=== PATIENT | female | born 1950 | race Caucasian/White ===

== ENCOUNTER 2018-01-03 19:36 | Observation (INO) | payer MEDICARE, OTHER ==
[~2018-01-03] VITALS: Ht 170.2 cm; Wt 97.2 kg
[~2018-01-03 19:36] MED LIST: OMEPRAZOLE20 MG PO; SYNTHROID150 MCG PO
--- NOTE | 2018-01-03 22:08 | NUR ---
PT STATES SHE HAS VERTIGO USUALLY, WILL DO ADMIT PHYSICAL ASSESSMENT WHEN PT READY
--- NOTE | 2018-01-03 23:00 | NUR ---
PT UP TO BRP, VOIDED CLEAR YELLOW URINE. BACK TO BED, TOLERATED FAIR. STILL C/O DRY HEAVING. DR SAMANO NOTIFIED VIA PHONE, N.O FOR PHENERGAN 12.5 MG IV Q4-6H FOR N/V, AND DILAUDID 0.3 TO 1.5 MF IV Q2 RECEIVED. NO C/O ABD PAIN AT THIS TIME. FAMILY AT BEDSIDE
--- NOTE | 2018-01-04 00:41 | NUR ---
medicated with phenergan 12.5mg IV, c/o dry heaving
--- NOTE | 2018-01-04 02:06 | NUR ---
RESTING, EYES CLOSED, NO RESP DISTRESS, NO FURTHER C/O N/V OR DRY HEAVING, PHENERGAN GIVEN EARLIER EFFECTIVE, TURNS SELF IN BED, NO S/SX OR CO ABD PAIN
--- NOTE | 2018-01-04 02:17 | NUR ---
UP TO BRP, VOIDED, BACK TO BED, DROWSY, NO C/O N/V OR ABD PAIN, TOLERATED WELL
--- NOTE | 2018-01-04 04:27 | NUR ---
PT UP TO BRP WITH ONE ASSIST, VOIDED, BACK TO BED, TOLERATED WELL. NO FURTHER C/O ABD PAIN OR N/V. AWAKE. IVF INFUSING W/O PROBLEMS. TURNS SELF IN BED
--- NOTE | 2018-01-04 05:45 | NUR ---
PT ADMITTED TO ROOM 123 FROM ED, C/O ABD PAIN. HAS BEEN MEDICATED WITH PHENERGAN 12.5MG IV PER DRY HEAVING, HAD EMESIS OF 100CC BILE COLORED. IVF INFUSING W/O PROBLEMS, RECEIVED FLAGYL AND LEVAQUIN ABX, TOLERATED WELL, IVF INFUSING W/O PROBLEMS. NO C/O ABD PAIN. UP TO BRP WITH 1 SBA, VOIDING QS. CURRENTLY IN BED, EYES CLOSED, NO RESP DISTRESS, NO FURTHER C/O N/V. PT NPO SINCE 0300 FOR AM PROCEDURE. WRITTEN AND VERBAL INFORMATION R/T PREOP/POST OP CARE/EXPECTATIONS, STATED UNDERSTANDING
--- NOTE | 2018-01-04 08:30 | NUR ---
PT AWAKE IN BED, ALERT AND ORIENTED. PT DENIES PAIN OR NAUSEA STATES "I'M ACTUALLY FEELING PRETTY GOOD." ASSESSMENT COMPLETED AND BENIGN. IV INFUSING WNL IN RIGHT AC, DRESSING CDI. PT INDEPENDENT TO RESTROOM. CALL LIGHT WITHIN REACH.
--- NOTE | 2018-01-04 10:24 | CONS ---
[facility] [address], [place] [address] Signed DATE OF CONSULTATION: 01/04/2018 CHIEF COMPLAINT: Right upper quadrant abdominal pain. HISTORY OF PRESENT ILLNESS: Emiliano is a 67-year-old female, who [place] out [place] the country in [place], [place]. She is with her , but he has had a significant stroke. He has significant cognitive issues following the stroke. More or less, she takes care of him. In the last month or so, she has had multiple episodes of right upper quadrant abdominal pain with significant nausea. She had been to her primary care provider. An ultrasound was done a few days ago, and she has at least two stones with half the gallbladder full of sludge along with adenomyosis of gallbladder wall. Common bile duct was unremarkable. She was scheduled to see me in the office in 2 days. However, she had another attack yesterday, so she came to the emergency room for evaluation. In the emergency room, it looks like she has quite a bit of white blood cells and bacteria in the urine as well. I was called to admit her as a general surgeon on-call for the gallbladder and urinary tract infection. She has been given Levaquin and Flagyl. She has done well overnight with her IV fluids and pain control. PAST MEDICAL HISTORY: Gastroesophageal reflux disease and thyroid cancer. PAST SURGICAL HISTORY: Includes a total thyroidectomy. SOCIAL HISTORY: She does not smoke or drink. She is to Vishnu at [phone]. They live in [place], [place]. They have two children. She does drive. 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 Dr. Zachariah Dumont is her primary care provider. FAMILY HISTORY: Mom had bladder cancer. Dad committed suicide. REVIEW OF SYSTEMS: Emiliano had 10 systems reviewed and there are no new issues. ALLERGIES: None. MEDICATIONS: Omeprazole and levothyroxine 150 mcg p.o. daily. Electronically Signed By: BENITA SAMANO MD 01/04/18 1024 PATIENT NAME: EMILIANO BROWN CONSULTATION DATE OF : 50 REPORT #: [id number] PHYSICIAN: BENITA SAMANO MD PCP: ZACHARIAH DUMONT DO REPORT IS CONFIDENTIAL AND NOT TO BE RELEASED WITHOUT AUTHORIZATION [facility] [address], [place] [address] Signed PHYSICAL EXAMINATION: VITAL SIGNS: Her blood pressure is 118/64, heart rate 60, respiratory rate 14, and temperature 97.9. She is 98% on room air. She is 5 feet 7 inches at 97 kg. GENERAL: Emiliano is a 67-year-old female, lying supine in her hospital bed. She does not appear systemically ill or toxic. LUNGS: Clear to auscultation bilaterally. HEART: Regular rate and rhythm. ABDOMEN: Obese, but soft and nontender. LABORATORY DATA: Her white blood cell count is 9.6, her hemoglobin is 15. Her BUN is 17, creatinine 0.7, total bilirubin was 1, AST 126, ALT 196, alkaline phosphatase 90, albumin is 4.6, and lipase 57. Urinalysis shows white blood cells and +1 bacteria. RADIOGRAPHIC STUDIES: Ultrasound shows two small stones in the gallbladder along with the gallbladder about half full of sludge. She has adenomyosis of the gallbladder wall. The common bile duct is unremarkable. ASSESSMENT AND PLAN: Emiliano is a 67-year-old female, who presents with what looks like cholecystitis, cholelithiasis as well as urinary tract infection. She has been admitted, hydrated, and given IV fluids along with IV antibiotics. She has had good pain control. I met with Emiliano in the hospital here and we discussed the above findings. She understands the location and function of the gallbladder. She understands laparoscopic versus open cholecystectomy. We did review the expected intraop and postop course. There is risk of surgery including, but not limited to bleeding, infection, scarring, change in contour of the skin, damage to bowel, damage to main bile duct, incisional hernias, and other unforeseen comorbidities. She had expressed understanding and she wishes to proceed. We are going to be adding her on to our OR scheduled for later this morning. Benita Samano MD ALB/MODL /[id number] cc: Zachariah Dumont DO Electronically Signed By: BENITA SAMANO MD 01/04/18 1024 PATIENT NAME: EMILIANO BROWN CONSULTATION DATE OF : 50 REPORT #: [id number] PHYSICIAN: BENITA SAMANO MD PCP: ZACHARIAH DUMONT DO REPORT IS CONFIDENTIAL AND NOT TO BE RELEASED WITHOUT AUTHORIZATION [address] [address] Signed Benita Samano MD Copies: ZACHARIAH DUMONT ANDREW L MD ~ Electronically Signed By: BENITA SAMANO MD 01/04/18 1024 PATIENT NAME: EMILIANO BROWN CONSULTATION DATE OF : 50 REPORT #: [id number] PHYSICIAN: BENITA SAMANO MD PCP: ZACHARIAH DUMONT DO REPORT IS CONFIDENTIAL AND NOT TO BE RELEASED WITHOUT AUTHORIZATION
--- NOTE | 2018-01-04 10:45 | NUR ---
PT TRANSFERRED TO STRETCHER INDEPENDENTLY, TRANSPORTED TO OR. FAMILY AT BEDSIDE.
--- NOTE | 2018-01-04 11:06 | NUR ---
CHANGED PATIENT'S LINENS. WHILE SHE DID HER WIPE DOWN FOR SURGERY. PUT THE SCDS ON AND NEW SOCKS AND GOWN.
--- NOTE | 2018-01-04 11:09 | NUR ---
NOW IN SURGERY.
--- NOTE | 2018-01-04 12:23 | NUR ---
01/04/18 1223 SHEEHAN,AMAN Appiah 1221: ORAL AIRWAY OUT. O2 MASK ON AT 8 L/MIN. PATIENT DENIES PAIN. DROWSY. PATIENT BACK TO SLEEP.
--- NOTE | 2018-01-04 13:00 | NUR ---
PT RETURNED FROM SURGERY. VERY DROWSY, REQUIRED FULL ASSIST FROM STRETCHER TO BED. PT WILL OPEN EYES BREIFLY TO ANSWER QUESTIONS BUT FALLS ASLEEP QUICKLY. LAP SITES X3 CDI. PT DENIES PAIN OR NAUSEA AT THIS TIME. SATTING 93% ON RA. IV INFUSING WNL. SCD'S ON. FAMILY AT BEDSIDE, CALL LIGHT WITHIN REACH.
[2018-01-04] MEDS ORDERED: NORCO 5-325 TA1 EACH PO (13:18)
--- NOTE | 2018-01-04 13:20 | OR ---
[facility] [address] [place], [place] [address] Signed DATE OF OPERATION: 01/04/2018 SURGEON: Benita Samano MD PREOPERATIVE DIAGNOSIS: Cholecystitis with cholelithiasis (sludge). POSTOPERATIVE DIAGNOSIS: Cholecystitis with cholelithiasis (sludge). PROCEDURE: Laparoscopic cholecystectomy with intraoperative cholangiogram. ESTIMATED BLOOD LOSS: None. FINDINGS: Emiliano had multiple small 5 to 7 mm stones in the gallbladder along with some sludge. Her common bile duct was unremarkable on the intraoperative cholangiogram. INDICATIONS: Emiliano is a 67-year-old female who has had trouble with right upper quadrant abdominal pain and nausea several times the last few weeks. She ended up going to her primary care provider and had an ultrasound which showed the stones and sludge with an unremarkable common bile duct. There were plans to come see me in the office I guess later in the week. She came to the emergency room this weekend with another episode. White count was normal. Liver function tests were slightly elevated and her urine showed some white blood cells and a little bacteria. Consequently, we admitted her and gave her some antibiotics. I met with Emiliano and explained to her the above findings. We also reviewed the location of function of the gallbladder. We discussed laparoscopic versus open cholecystectomy. She understands expected intraop and postop course. There is risk of surgery including, but not limited to bleeding, infection, scarring, change in contour of the skin, damage to bowel, damage to main bile duct, incisional hernias and other unforeseen comorbidities. She had expressed understanding and wished to proceed. PROCEDURE NOTE: Emiliano was taken into our operating room and placed in the supine position under general endotracheal tube anesthesia. She was given preoperative antibiotics along with subcutaneous heparin. In addition, SCDs were utilized. She was then prepped and draped Electronically Signed By: BENITA SAMANO MD 01/04/18 1320 PATIENT NAME: EMILIANO BROWN OPERATIVE REPORT DATE OF : 50 REPORT #: [id number] PHYSICIAN: BENITA SAMANO MD PCP: MARIA D DUMONT DO REPORT IS CONFIDENTIAL AND NOT TO BE RELEASED WITHOUT AUTHORIZATION [facility] [address], [place] [address] Signed in the usual sterile fashion. All trocars were placed in usual positions under direct visualization of camera without difficulty. We had quite a bit of air in the stomach. Unfortunately, we could not pass an OG tube to evacuate that air. It took a few minutes to dissect out the triangle of Calot and then the intraoperative cholangiogram was performed. The cystic duct stump was secured with a PDS Endoloop along with a couple of clips to cherry its location. The gallbladder was then removed from the gallbladder fossa with the help of the cautery and placed into an EndoCatch bag. The right upper quadrant was irrigated and suctioned out until clear. We used our laparoscopic suturing device to pass 0 Vicryl suture on either side of the fascia or the subxiphoid trocar site. This was tied down to close this fascia primarily. After this, the trocars were all removed along with the gallbladder. The gallbladder had been opened on the back table and pictures were taken for photodocumentation. The fascia of the supraumbilical trocar site was closed with interrupted simple and [id number] 0 Vicryl sutures. Local anesthetic was injected into all trocar sites. Each trocar site was irrigated and suctioned out until clear. The skin and dermis of each trocar site were closed with interrupted 3-0 subcuticular Monocryl sutures. Dry gauze and tape were then applied. Emiliano was awakened from her anesthesia, extubated in the OR and taken to the recovery room in stable condition. Benita Samano MD ALB/MODL /[id number] cc: DO Benita Seklton MD Copies: MARIA D DUMONT ANDREW L MD ~ Electronically Signed By: BENITA SAMANO MD 01/04/18 1320 PATIENT NAME: EMILIANO BROWN OPERATIVE REPORT DATE OF : 50 REPORT #: [id number] PHYSICIAN: BENITA SAMANO MD PCP: MARIA D DUMONT DO REPORT IS CONFIDENTIAL AND NOT TO BE RELEASED WITHOUT AUTHORIZATION
[2018-01-04] MEDS ORDERED: PROMETHAZINE HC25 M1 PO (13:21)
[2018-01-04] MEDS ORDERED: LEVAQUIN500 MG PO (13:21)
[2018-01-04] MEDS ORDERED: FLAGYL500 MG PO (13:22)
--- NOTE | 2018-01-04 15:05 | NUR ---
PATIENT TOOK A WALK, AND ASKED FOR A JELLO AND THEN ORDERED A MEAL AND ALSO WANTED TO TAKE CARE OF HER PAIN LEVEL. NURSE WAS NOTIFIED. I BROUGHT PATIENT ANOTHER JELLO WHILE WAITING
--- NOTE | 2018-01-04 21:29 | EKG ---
[facility] [address] [facility] [place] [address] Signed Sinus bradycardia Otherwise normal ECG No previous ECGs available Confirmed by SANAM OCONNOR MD ([id number]) on 01/04/2018 9:29:20 PM Electronically Signed By: SANAM OCONNOR MD 01/04/18 2129 PATIENT NAME: EMILIANO BROWN CARLOS Electrocardiogram DATE OF : 50 PHYSICIAN: SANAM OCONNOR MD REPORT #: [id number] REPORT IS CONFIDENTIAL AND NOT TO BE RELEASED WITHOUT AUTHORIZATION
== END 2018-01-04 16:22 | disposition home or self-care (01) ==
LOC: ED 19:36 → MS 19:37
PROVIDERS: ADMIT Colon & Rectal Surgery
PROC: 0FT44ZZ Resection of Gallbladder, Percutaneous Endoscopic Approach (ICD-10-PCS; 2018-01-04)
PROC: BF101ZZ Fluoroscopy of Bile Ducts using Low Osmolar Contrast (ICD-10-PCS; principal; 2018-01-04 12:00)
DX: K80.10 Calculus of gallbladder with chronic cholecystitis without obstruction (principal); K21.9 Gastro-esophageal reflux disease without esophagitis; N39.0 Urinary tract infection, site not specified; E66.9 Obesity, unspecified; E89.0 Postprocedural hypothyroidism; Z79.899 Other long term (current) drug therapy; Z85.850 Personal history of malignant neoplasm of thyroid; Z68.33 Body mass index [BMI] 33.0-33.9, adult
CPT/HCPCS: 00790; 74300; 80053; 81001; 83690; 85025; 88304; 93005; 93010; 96361; 96365; 96366; 96375; 96376; 99285; G0378; J0330; J0735; J1100; J1170; J1885; J1956; J2250; J2405; J2550; J2704; J3475; J7030; J7120; Q9967

== ENCOUNTER → 2018-01-16 | Emergency (ER) | payer MEDICARE, OTHER ==
[~2018-01-16] VITALS: Ht 170.2 cm; Wt 97.2 kg
[~2018-01-16] MED LIST changes: +FLAGYL500 MG PO; +LEVAQUIN500 MG PO; +NORCO 5-325 TA1 EACH PO; +PROMETHAZINE HC25 M1 PO
== END ==
LOC: ED 21:17
DX: K85.90 Acute pancreatitis without necrosis or infection, unspecified (principal); Z79.899 Other long term (current) drug therapy; Z90.49 Acquired absence of other specified parts of digestive tract
CPT/HCPCS: 74177; 80053; 81001; 82150; 83690; 85025; 96361; 96374; 96375; 99285; J1170; J2405; J7030; Q9967

== ENCOUNTER 2019-08-27 07:32 | Day surgery (SDC) | payer MEDICARE, OTHER ==
[~2019-08-27] VITALS: Ht 167.6 cm; Wt 96.6 kg
--- NOTE | 2019-08-27 09:00 | NUR ---
08/27/19 0859 Caro Ceballos 0854- PT TO PACU IN LL POSITION. EYES CLOSED. OPENS EYES TO VERBAL AND LIGHT TACTILE STIMULATION . DENIES PAIN AND NAUSEA. BREATHING EASY AND UNLABORED. SP02 >95% ON 2 L O2 VIA NC. 0900- PT CONTINUES TO SLEEP IN LL POSITION EYES CLOSED. BREATHING EASY AND UNLABORED. SP02 >95% ON RA. PASSING GAS.
--- NOTE | 2019-08-27 09:49 | OR ---
[facility] [address] [place], [place] [address] Signed DATE OF OPERATION: 08/27/2019 SURGEON: Naga Gomez MD PREOPERATIVE DIAGNOSIS: Colon screening (surveillance). POSTOPERATIVE DIAGNOSIS: Melanosis coli. PROCEDURE: Total colonoscopy to cecum with biopsy of rectum and cecum. ANESTHESIA: Intravenous sedation, fentanyl 150 mcg, Versed 5 mg. INDICATION: This 68-year-old white woman is a patient of Zachariah Dumont. She has seen Dr. Plasencia and others in the past. She is here for surveillance colonoscopy. Prior colonoscopy has shown no evidence of polyps so far as it is known. She additionally has gastroesophageal reflux, for which, she takes PPI medication. She understands the risks of bleeding, infection, and perforation related to colonoscopy and wished to proceed. FINDINGS: The prep was adequate. Complete colonoscopy was undertaken to the cecum. Melanosis coli was noted. Biopsies were obtained. There were no polyps, diverticular formation, colitis, or cancer. PROCEDURE NOTE: The patient was brought to the endoscopy suite and placed in lateral decubitus position, given intravenous sedation to the point of slurred speech and nystagmus. Digital rectal examination was normal. An Olympus video colonoscope was passed in the rectum and manipulated throughout the colon ultimately intubating the cecum itself. Irrigation was required, though there was no solid stool. Melanosis coli was obvious. Biopsies were taken of the cecum. The scope was withdrawn and examination throughout showed no sign of polyps, diverticular formation, colitis or cancer, only melanosis coli. Biopsy of rectum was similarly obtained. The scope was then removed. The patient was taken to recovery room in good condition. Electronically Signed By: NAGA GOMEZ MD 08/27/19 0949 PATIENT NAME: EMILIANO BROWN OPERATIVE REPORT DATE OF : 50 REPORT #: [id number] PHYSICIAN: NAGA GOMEZ MD PCP: ZACHARIAH DUMONT DO REPORT IS CONFIDENTIAL AND NOT TO BE RELEASED WITHOUT AUTHORIZATION [facility] [address] [place], [place] [address] Signed CONCLUDING DIAGNOSIS: Melanosis coli. No sign of polyps. PLAN: Recommend repeat colonoscopy in 10 years if clinically appropriate. She will return to the ongoing care of Zachariah Dumont. MD RENATA Hinds/MODL /[id number] cc: Zachariah Dumont DO Copies: ZACHARIAH DUMONT DO ~ Electronically Signed By: NAGA GOMEZ MD 08/27/19 0949 PATIENT NAME: EMILIANO BROWN OPERATIVE REPORT DATE OF : 50 REPORT #: [id number] PHYSICIAN: NAGA GOMEZ MD PCP: ZACHARIAH DUMONT DO REPORT IS CONFIDENTIAL AND NOT TO BE RELEASED WITHOUT AUTHORIZATION
--- NOTE | 2019-08-31 15:16 | PATH ---
[facility] [address] [place], [place] [address] Signed SPECIMEN(S): A CECUM SPECIMEN(S): B RECTUM SPECIMEN SOURCE: A. CECUM B. RECTUM CLINICAL HISTORY: Screening, melanosis coli. MICROSCOPIC DESCRIPTION: A special stain for iron (with appropriately staining controls) was performed on the cecal biopsy (A) and is negative for hemosiderin-laden macrophages. Histologic sections of all submitted blocks are examined by light microscopy. These findings, together with the gross examination, support the pathologic diagnosis. FINAL PATHOLOGIC DIAGNOSIS: A. Colon, cecum, biopsy: - Colonic mucosa with melanosis coli. - Negative for dysplasia or malignancy. B. Rectum, biopsy: - Rectal mucosa with prominent lymphoid aggregate and hyperplastic mucosal changes. - Negative for dysplasia or malignancy. NAL:glc:C2NR GROSS DESCRIPTION: Two specimens are received in two containers, labeled "LH." A. The specimen, labeled "LH," and designated on the requisition "cecum biopsy," is received in formalin and consists of three jimenez soft tissue fragment(s) that measure 0.1-0.4 cm in greatest dimension. The specimen is entirely submitted in cassette (A1). B. The specimen, labeled "LH," and designated on the requisition "rectum," is received in formalin and consists of two jimenez soft tissue fragment(s) that measure 0.3 and 0.4 cm in greatest dimension. The specimen is entirely submitted in cassette (B1). FB (under the direct supervision of a pathologist) The Gross Description was prepared using a voice recognition system. The report was reviewed for accuracy; however, sound-alike word errors, addition and/or deletions may occur. If there is any question about this report, please contact Client Services. PATIENT NAME: EMILIANO BROWN PATHOLOGY DATE OF : 50 REPORT #: [id number] PHYSICIAN: JANN MUJICA PCP: MARIA D DUMONT DO REPORT IS CONFIDENTIAL AND NOT TO BE RELEASED WITHOUT AUTHORIZATION [facility] [address] [place] [address] Signed PERFORMING LABORATORY: The technical component was performed [place] [address] (Supervisor Sewing Department: Martine Hagan MD; CLIA# [id number]). Professional interpretation was performed by [facility], [address] [address] (Supervisor Sewing Department: Robert Whiting MD; CLIA# [id number]). Diagnostician: Saritha Goyal MD Pathologist Electronically Signed 08/31/2019 Copies: ~ PATIENT NAME: EMILIANO BROWN PATHOLOGY DATE OF : 50 REPORT #: [id number] PHYSICIAN: JANN MUJICA PCP: MARIA D DUMONT DO REPORT IS CONFIDENTIAL AND NOT TO BE RELEASED WITHOUT AUTHORIZATION
== END 2019-08-27 09:50 | disposition home or self-care (01) ==
LOC: DS 07:32 → OPS 07:32 → DS 08:30 → OPS 08:30
PROVIDERS: Surgery
PROC: 0DBP8ZX Excision of Rectum, Via Natural or Artificial Opening Endoscopic, Diagnostic (ICD-10-PCS; 2019-08-27)
PROC: 0DBH8ZX Excision of Cecum, Via Natural or Artificial Opening Endoscopic, Diagnostic (ICD-10-PCS; principal; 2019-08-27 08:30)
DX: Z12.11 Encounter for screening for malignant neoplasm of colon (principal); K63.89 Other specified diseases of intestine; K21.9 Gastro-esophageal reflux disease without esophagitis; Z98.890 Other specified postprocedural states; Z85.850 Personal history of malignant neoplasm of thyroid; Z90.49 Acquired absence of other specified parts of digestive tract; Z86.718 Personal history of other venous thrombosis and embolism
CPT/HCPCS: 99153; G0500; J2250; J3010; J7121

== ENCOUNTER 2023-07-14 05:35 | Day surgery (SDC) | payer MEDICARE, OTHER ==
[2023-07-01 15:27] VITALS: BP 115/73
[~2023-07-14] VITALS: Ht 167.6 cm; Wt 82.0 kg
[~2023-07-14 05:35] MED LIST changes: +CALCIUM500 MG PO; +CELECOXIB200 MG PO; +CITALOPRAM HBR20 MG PO; +FOLIC ACID1 MG PO; +HYDROCODON-ACE1 EA10 PO; +IRON18 MG PO; +MAGNESIUM200 MG PO; +VITAMIN D325 MC2 PO
[2023-07-14] MEDS ORDERED: VITAMIN C100 MG PO (06:00)
[2023-07-14] MEDS ORDERED: CANDICIDAL CAP1 EACH PO (06:00)
[2023-07-14] MEDS ORDERED: METAMUCIL0.4 GM PO (06:00)
[2023-07-14] MEDS ORDERED: PROBIOTIC1 EAC8 PO (06:01)
[2023-07-14 06:07] VITALS: BP 152/71
[2023-07-14] MEDS ORDERED: OXYCODONE HCL5 MG PO (08:24)
[2023-07-14] MEDS ORDERED: GABAPENTIN300 MG PO (08:24)
[2023-07-14] MEDS ORDERED: XARELTO10 MG PO (08:24)
[2023-07-14] MEDS ORDERED: SENNA LAX8.6 MG PO (08:25)
[2023-07-14 09:39] VITALS: BP 121/69
[2023-07-14 10:45] VITALS: BP 128/68
[2023-07-14 11:40] VITALS: BP 124/60
[2023-07-14 13:15] VITALS: BP 126/68
--- NOTE | 2023-07-14 14:02 | OR ---
[facility] [address] [facility] [place], [place] [address] Signed DATE OF OPERATION: 07/14/2023 SURGEON: Iman Whiting MD PREOPERATIVE DIAGNOSIS: Severe degenerative joint disease, left knee. POSTOPERATIVE DIAGNOSIS: Severe degenerative joint disease, left knee. PROCEDURE PERFORMED: Left total knee arthroplasty with Zeferino. BUSINESS RELATIONSHIP MANAGER: Meli Arcos PA-C, Meli was present and critical for all portions of procedure. ANESTHESIA: Spinal. BLOOD LOSS: 175 mL. TOURNIQUET TIME: Zero. IMPLANTS: Ana Triathlon size 3, 9 mm polyethylene, 29 mm patella. BRIEF HISTORY: Emiliano is a 72-year-old female with progressive worsening of osteoarthritis. Nonoperative treatment had failed to control her symptoms. She wished to proceed with operative intervention. Risks, benefits, and alternatives of total knee arthroplasty were discussed and she understood, wished to proceed. PROCEDURE IN DETAIL: Once consent was obtained, she was taken to the operating room. After adequate anesthesia, she was placed on operating room table on a hip bump. Leg was then prepped and draped in a standard sterile fashion. Standard anterior approach through a straight midline incision was carried through skin subcutaneous tissue. The midvastus arthrotomy Electronically Signed By: IMAN WHITING MD 07/14/23 1402 PATIENT NAME: EMILIANO BROWN OPERATIVE REPORT DATE OF : 50 REPORT #: [id number] PHYSICIAN: IMAN WHITING MD PCP: MARIA D DUMONT DO REPORT IS CONFIDENTIAL AND NOT TO BE RELEASED WITHOUT AUTHORIZATION [facility] [address] [place], [place] [address] Signed was performed and the MCL was elevated as a sleeve around to the posterior medial corner. The infrapatellar fat pad was excised and the anterior horns of the menisci were transected. The ACL was transected, the PCL was found to be intact. The navigation computer arrays were then placed in the medial femoral condyle, proximal tibia. The leg was registered with the computer followed by the fine anatomic points of the knee. The varus and valgus testing was undertaken and the knee was found to be in good general balance. The robot was then brought. The four straight cuts and two angled cuts were made with care taken to protect the patellar tendon and MCL. The bony remnants were removed as were any osteophytes. Posterior osteophytes removed off the femur, but no posterior release was performed. The trials were then positioned. Knee was taken from 0-130 degrees with excellent stability. The patella was cut, sized and drilled for 29 mm patella. The distal femoral drill holes were made and the proximal tibia was finished using the keel punch and the drill holes were made. The tibial component was then obtained and impacted until it was flushed with the cuts. The polyethylene was snapped into position and the femur was impacted. The knee was then extended and loaded. The patella was clamped into position and the clamp was removed. The knee was taken through range of motion again and found to be stable. The patella tracked very nicely. The wound was then copiously irrigated with one bottle of Surgiphor followed by normal saline. The periarticular soft tissues were injected with 100 mL ropivacaine and Toradol mixture. The On-Q pain pump was percutaneously placed into the adductor canal from the suprapatellar pouch. The arthrotomy was then closed using a combination of #2 FiberWire and #2 Stratafix, subcutaneous tissue with 0 Stratafix and skin with a 3-0 Stratafix. The wound was sealed with LiquiBand and Steri-Strips. The wound was then dressed with Acticoat-7 dressing, ABD, and Drew wrap. She tolerated the procedure well. All sponge, needle, and instrument counts were correct. Iman Whiting MD BA/MODL /[id number] Electronically Signed By: IMAN WHITING MD 07/14/23 1402 PATIENT NAME: EMILIANO BROWN OPERATIVE REPORT DATE OF : 50 REPORT #: [id number] PHYSICIAN: IMAN WHITING MD PCP: MARIA D DUMONT DO REPORT IS CONFIDENTIAL AND NOT TO BE RELEASED WITHOUT AUTHORIZATION [facility] [address] [place] [id number] Signed Copies: ~ Electronically Signed By: IMAN WHITING MD 07/14/23 1402 PATIENT NAME: EMILIANO BROWN OPERATIVE REPORT DATE OF : 50 REPORT #: [id number] PHYSICIAN: IMAN WHITING MD PCP: MARIA D DUMONT DO REPORT IS CONFIDENTIAL AND NOT TO BE RELEASED WITHOUT AUTHORIZATION
[2023-07-14 14:14] VITALS: BP 126/62
== END 2023-07-14 14:45 | disposition home or self-care (01) ==
LOC: DS 05:35
PROVIDERS: ATTEND Specialist
PROC: 3E0T3BZ Introduction of Anesthetic Agent into Peripheral Nerves and Plexi, Percutaneous Approach (ICD-10-PCS; 2023-07-14)
PROC: 0SRD0JZ Replacement of Left Knee Joint with Synthetic Substitute, Open Approach (ICD-10-PCS; principal; 2023-07-14 07:00)
DX: M17.12 Unilateral primary osteoarthritis, left knee (principal); M81.0 Age-related osteoporosis without current pathological fracture
CPT/HCPCS: 64447; 76942; 97161; A9270; C1713; C1776; J0131; J0690; J1100; J1885; J2001; J2250; J2405; J2704; J2765; J2795; J3010; J7040; J7121; J7999